=== PATIENT | male | born 1960 | race Caucasian/White ===

== ENCOUNTER 2018-01-12 08:26 | Emergency (ER) | payer BC ==
[~2018-01-12] VITALS: Ht 172.7 cm; Wt 72.6 kg
--- OUTSIDE RECORDS SUMMARY | 2018-01-12 08:28 | XMS REPORT | Clinical Summary ---
Author Author [facility] Organization [facility] Address Unknown Phone Unavailable Care Team Providers Care Senior Communications Specialist Name Role Phone Elinor Cook MD PCP Allergies No Known Allergies Current Medications Prescription Sig. Disp. Refills Start End Date Status Date 5-HYDROXYTRYPTOPHAN, Take by mouth. Active 5-HTP, ORAL ASTAXANTHIN ORAL Take by mouth. Active COLLAGEN, HYDROLYSATE, by Miscellaneous route. Active BOVINE, (COLLAGEN, HYDR, BOVINE,, BULK, MISC) DOCOSAHEXANOIC ACID-EPA Take by mouth. Active ORAL melatonin 3 mg tablet Take by mouth. Active glucosamine HCl-msm Take by mouth. Active 1,500-500 mg/30 mL liquid OMEGA 3-ZVY-BNZ-FISH OIL Take 2 g by mouth. Active ORAL THEANINE ORAL Take by mouth. Active valACYclovir (VALTREX) Take 1,000 mg by mouth. 10/05/19 Active 1000 MG tablet 16 TURMERIC (CURCUMIN MISC) Active Active Problems Problem Noted Date Knee pain 10/05/2015 Polyp of colon 12/15/2014 Diverticulosis of large intestine without perforation or abscess without bleeding Calculus of kidney 12/15/2014 Neck pain 12/15/2014 Smell disorder 12/15/2014 Encounters Date Type Specialty Care Team Description 11/20/2017 Hospital Radiology Rigoberto Heredia MD Renal calculus Encounter 11/20/2017 Transcribe Rigoberto Bobo MD Renal calculus ( Primary Orders Dx) 10/12/2017 Office Visit Internal Medicine Constance Cook MD Abnormal glucose level (Primary Dx) 05/29/2017 Hospital Radiology Rigoberto Heredia MD Hydronephrosis, Encounter unspecified hydronephrosis type 05/25/2017 Transcribe Rigoberto Bobo MD Hydronephrosis, Orders unspecified hydronephrosis type (Primary Dx) 01/30/2017 Hospital Procedural Cardiology Constance Cook MD Pain in both lower Encounter extremities; Generalized abdominal pain 01/26/2017 Office Visit Internal Medicine Constance Cook MD Pain in both lower extremities (Primary Dx) after 01/11/2017 Family History Medical History Relation Name Comments Esophageal cancer Other Kidney cancer Other Relation Name Status Comments Other Social History Tobacco Use Types Packs/Day Years Used Date Never Smoker Smokeless Tobacco: Never Used Alcohol Use Drinks/Week oz/Week Comments No Sex Assigned at Date Recorded Not on file Last Filed Vital Signs Vital Sign Reading Time Taken Blood Pressure 136/74 10/12/2017 9:57 AM WINDING INSPECTOR AND TESTER Pulse 74 10/12/2017 9:57 AM WINDING INSPECTOR AND TESTER Temperature - - Respiratory Rate - - Oxygen Saturation - - Inhaled Oxygen - - Concentration Weight 72.6 kg (160 lb) 10/12/2017 9:57 AM WINDING INSPECTOR AND TESTER Height 175.3 cm (5' 9") 10/12/2017 9:57 AM WINDING INSPECTOR AND TESTER Body Mass Index 23.63 10/12/2017 9:57 AM WINDING INSPECTOR AND TESTER Plan of Treatment Health Maintenance Due Date Last Done Comments COLON CANCER SCREENING 2008 SHINGRIX VACCINE (#1) 2008 INFLUENZA VACCINE 03/21/2018 Results * XR Kub Kidney Ureter Bladder (11/20/2017 3:37 PM) Specimen Performing Laboratory [facility] [address] [place] [address] Narrative PROCEDURE:XR KUB KIDNEY URETER BLADDER CLINICAL HISTORY:N20.0 Calculus of kidney, n20.0 COMPARISON:None. TECHNIQUE: A single view of the abdomen was performed in the AP supine projection. FINDINGS: No indirect evidence of free air is seen.. No distended loops of small or large bowel are identified. Large amount of stool is demonstrated throughout the colon. Bilateral radiopaque renal calculi are seen with the calculus in the right kidney in the upper pole and measures 3.8 mm diameter. A cluster of small calculi are seen in the lower pole with the largest of these measuring 2.4 mm. A small calculus is seen projected over the upper pole with the longest diameter measuring 5.5 mm. A few phleboliths are demonstrated in the pelvis. IMPRESSION: Abnormal study. Constipation. Bilateral renal calculi. [id number] . Procedure Note Interface, Radiology Results Incoming - 11/20/2017 3:49 PM CDT PROCEDURE: XR KUB KIDNEY URETER BLADDER CLINICAL HISTORY: N20.0 Calculus of kidney, n20.0 COMPARISON: None. TECHNIQUE: A single view of the abdomen was performed in the AP supine projection. FINDINGS: No indirect evidence of free air is seen.. No distended loops of small or large bowel are identified. Large amount of stool is demonstrated throughout the colon. Bilateral radiopaque renal calculi are seen with the calculus in the right kidney in the upper pole and measures 3.8 mm diameter. A cluster of small calculi are seen in the lower pole with the largest of these measuring 2.4 mm. A small calculus is seen projected over the upper pole with the longest diameter measuring 5.5 mm. A few phleboliths are demonstrated in the pelvis. IMPRESSION: Abnormal study. Constipation. Bilateral renal calculi. [id number] . * POC glycosylated hemoglobin (Hb A1C) (10/12/2017 10:08 AM) Component Value Ref Range POC Hemoglobin A1C 5.4 % Specimen Performing Laboratory Blood * NM Renal Scan Wflow Funct Sgl Int W/Mag 3 (05/29/2017 2:45 PM) Specimen Performing Laboratory [facility] [address] [place] [address] Narrative PROCEDURE:NM RENAL SCAN WFLOW FUNCT SGL INT W MAG 3 INDICATION:Hydronephrosis. TECHNIQUE: The patient was injected with 10 mCi of Tc-99m MAG-3, IV. Dynamic images of the abdomen were acquired for 40 minutes. At 20 minutes, a standard dose of IV lasix was administered. FINDINGS:Perfusion to both kidneys is normal.Cortical transit time through both kidneys is less than 5 minutes.Urine flows freely from the left kidney into the bladder.There is mild stasis in the right renal pelvis at 20 minutes, with complete washout after Lasix.The half-time of emptying of the right kidney is 12 minutes. Normal washout is less than 10 minutes. High grade obstruction is suggested if greater than 20 minutes. Between 10 and 20 minutes is indeterminate. Split function:Left kidney 53%, right kidney 47%. IMPRESSION: 1.No evidence for high-grade obstruction of either kidney.The left kidney drains normally before Lasix.Mild stasis in the right kidney clears completely after Lasix. [facility]-[id number] Procedure Note Interface, Radiology Results Incoming - 05/29/2017 4:52 PM CDT PROCEDURE: NM RENAL SCAN WFLOW FUNCT SGL INT W MAG 3 INDICATION: Hydronephrosis. TECHNIQUE: The patient was injected with 10 mCi of Tc-99m MAG-3, IV. Dynamic images of the abdomen were acquired for 40 minutes. At 20 minutes, a standard dose of IV lasix was administered. FINDINGS: Perfusion to both kidneys is normal. Cortical transit time through both kidneys is less than 5 minutes. Urine flows freely from the left kidney into the bladder. There is mild stasis in the right renal pelvis at 20 minutes , with complete washout after Lasix. The half-time of emptying of the right kidney is 12 minutes. Normal washout is less than 10 minutes. High grade obstruction is suggested if greater than 20 minutes. Between 10 and 20 minutes is indeterminate. Split function: Left kidney 53%, right kidney 47%. IMPRESSION: 1. No evidence for high-grade obstruction of either kidney. The left kidney drains normally before Lasix. Mild stasis in the right kidney clears completely after Lasix. [facility]-[id number] * PV duplex venous lower extremity bilat (01/30/2017 9:50 AM) Specimen Performing Laboratory [facility] [address] [place] [address] Narrative Vascular Ultrasound Laboratory Lower Extremity Venous Report [address] [place] [address].Name:Abhilash ARMENTA.ID:[id number] .Date: 01/30/2017 Refer.MD:CONSTANCE COOK MD Exam Time: 9:02:00 AMStudy Type:LE Venous Height:69inWeight:164lb BSA: 1.9 n0MTYZpl:1960,56Y Sex: MALESonogrphr: Aline Pettit RVT Pat. Stat.:OutpatientRoom:OPC 16 TapeVol: SD, CPT - 4: 48104 Echo Event ID:[id number] Order ID:[id number] Reason for Study:Bilateral calf pain x 4 months often on, more towards the end of the day as per the patient. Race:C SUMMARY: DUPLEX SCAN OBSERVATIONS Deep VeinsSuperficial Veins RightLeft RightLeft GSV (prox) NormalNormal CFV Normal Normal (above knee) Femoral Normal Normal GSV (dist) Normal Normal Profunda Normal Normal (below knee) Popliteal Normal Normal PT (prox) Normal NormalSSV Not Visualized Not Visualized PT (dist) Normal Normal Peroneal Normal Normal RIGHT:There is normal compressibility with no evidence of echogenic material noted within the lumen of the visualized veins. Colorflow and Doppler signals are normal. LEFT: There is normal compressibility with no evidence of echogenic material noted within the lumen of the visualized veins. Colorflow and Doppler signals are normal. PRELIMINARY FINDINGS 1. Normal venous duplex exam, bilaterally. PHYSICIAN INTERPRETATION 1.Venous examination of the both lower extremities demonstrates no evidence of venous thrombosis. Signed 01/30/2017 04:46 PM Alexandr Elmore MD Procedure Note Interface, Radiology Results In - 01/30/2017 4:47 PM CDT Vascular Ultrasound Laboratory Lower Extremity Venous Report [address] [place] [address] Pat.Name: MIKE ARMENTA Pat.ID: [id number] .Date: 01/30/2017 Refer.MD: CONSTANCE COOK MD Exam Time: 9:02:00 AM Study Type:LE Venous Height: 69in Weight: 164lb BSA: 1.9 m2 Age: 1 1960,56Y Sex: MALE Sonogrphr: Aline Pettit RVT Pat. Stat.:Outpatient Room: [facility] 16 Tape Vol: SD, CPT - 4: 42322 Echo Event ID:[id number] Order ID: [id number] Reason for Study:Bilateral calf pain x 4 months often on, more towards the end of the day as per the patient. Race: C SUMMARY: DUPLEX SCAN OBSERVATIONS Deep Veins Superficial Veins Right Left Right Left GSV (prox) Normal Normal CFV Normal Normal (above knee) Femoral Normal Normal GSV (dist) Normal Normal Profunda Normal Normal (below knee) Popliteal Normal Normal PT (prox) Normal Normal SSV Not Visualized Not Visualized PT (dist) Normal Normal Peroneal Normal Normal RIGHT: There is normal compressibility with no evidence of echogenic material noted within the lumen of the visualized veins. Colorflow and Doppler signals are normal. LEFT: There is normal compressibility with no evidence of echogenic material noted within the lumen of the visualized veins. Colorflow and Doppler signals are normal. PRELIMINARY FINDINGS 1. Normal venous duplex exam, bilaterally. PHYSICIAN INTERPRETATION 1. Venous examination of the both lower extremities demonstrates no evidence of venous thrombosis. Signed 01/30/2017 04:46 PM Alexandr Elmore MD after 01/11/2017 Insurance Payer Benefit Subscriber ID Type Phone Address Plan / Group BCBS BCBS xxxxxxxxxxxx PPO CHOICE PPO/[employer] PPO Home: MIKE ARMENTA Personal/F Self 1960 Work: [address] [place] [address] Home:
[2018-01-12] MEDS ORDERED: ASPIRIN 81 MG CHEW TAB PO ONE (08:45)
[2018-01-12 08:57] LABS: BASOPHILS % 0.5 % (0.0-1.0); EOSINOPHILS # (AUTO) 0.2 (0.0-0.4); EOSINOPHILS % 2.6 % (0.0-6.0); HEMATOCRIT 47.3 % (38.2-49.6); HEMOGLOBIN 16.1 g/dL (14.0-18.0); LYMPHOCYTES # (AUTO) 2.4 (1.0-3.2); LYMPHOCYTES % 39.3 % (18.0-39.1); MEAN CORPUSCULAR HEMOGLOBIN 29.9 pg (28-32); MEAN CORPUSCULAR VOLUME 87.9 fL (81-99); MONOCYTES # (AUTO) 0.5 (0.2-0.8); MONOCYTES % 7.9 % (4.4-11.3); NEUTROPHILS # (AUTO) 3.1 (2.1-6.9); NEUTROPHILS % 49.5 % (38.7-80.0); PLATELET COUNT 177 x10e3/uL (140-360); RED BLOOD COUNT 5.38 x10e6/uL (4.3-5.7); RED CELL DISTRIBUTION WIDTH 12.9 % (11.7-14.4)
[2018-01-12 09:00] LABS: BILIRUBIN,URINE NEGATIVE (NEGATIVE); CLARITY,URINE CLEAR (CLEAR); COLOR,URINE YELLOW (YELLOW); KETONES,URINE NEGATIVE (NEGATIVE); LEUKOCYTE ESTERASE ,URINE NEGATIVE (NEGATIVE); NITRITE,URINE NEGATIVE (NEGATIVE); PROTEIN,URINE DIPSTICK NEGATIVE (NEGATIVE); URINE UROBILINOGEN 0.2 mg/dL (0.2 - 1)
[2018-01-12 09:10] LABS: BACTERIA,URINE FEW /HPF; EPITHELIAL CELLS,URINE RARE /LPF; WBC,URINE (MAN) 0-5 /HPF (0-5)
--- NOTE | 2018-01-12 09:13 | Diagnostic Imaging Report ---
PROCEDURE:CHEST 2 VIEWS TECHNIQUE:PA and lateral chest INDICATION:Chest pain; abdominal pain COMPARISON:None. FINDINGS: The lungs are clear and symmetrically inflated. No pleural effusions. Normal heart size and mediastinal contour, and pulmonary vasculature. Normal skeleton. CONCLUSION: Normal study. Dictated by: Kevon Presley M.D. on 01/12/2018 at 9:16 Electronically approved by: Kevon Presley M.D. on 01/12/2018 at 9:16
[2018-01-12 09:16] LABS: ALANINE AMINOTRANSFERASE 40 IU/L (0-55); ALBUMIN 4.3 g/dL (3.5-5.0); ALBUMIN/GLOBULIN RATIO 1.5 (0.8-2.0); ALKALINE PHOSPHATASE 35 IU/L (40-150); ANION GAP 12.4 mmol/L (8-16); BLOOD UREA NITROGEN 16 mg/dL (7-26); BUN/CREATININE RATIO 19 (6-25); CALCIUM 9.7 mg/dL (8.4-10.2); CARBON DIOXIDE 27 mmol/L (22-29); CHLORIDE 102 mmol/L (98-107); CREATINE KINASE 97 IU/L (30-200); CREATININE, SERUM 0.85 mg/dL (0.72-1.25); EST GLOMERULAR FILTRATION RATE > 60 ML/MIN (60-); GLUCOSE 98 mg/dL (74-118); POTASSIUM 3.4 mmol/L (3.5-5.1); SODIUM 138 mmol/L (136-145)
--- OUTSIDE RECORDS SUMMARY | 2018-01-12 09:48 | XMS REPORT | Clinical Summary ---
Author Author [facility] Organization [facility] Address Unknown Phone Unavailable Care Team Providers Care Administrative Assistant Receptionist Name Role Phone Elinor Cook MD PCP [...] mouth. Active 1,500-500 mg/30 mL liquid OMEGA 4-QFY-CIO-FISH OIL Take 2 g by mouth. Active [...] Taken Blood Pressure 136/74 10/12/2017 9:57 AM RED CROSS EXECUTIVE DIRECTOR Pulse 74 10/12/2017 9:57 AM RED CROSS EXECUTIVE DIRECTOR Temperature - - Respiratory Rate - - Oxygen Saturation - - Inhaled Oxygen - - Concentration Weight 72.6 kg (160 lb) 10/12/2017 9:57 AM RED CROSS EXECUTIVE DIRECTOR Height 175.3 cm (5' 9") 10/12/2017 9:57 AM RED CROSS EXECUTIVE DIRECTOR Body Mass Index 23.63 10/12/2017 9:57 AM RED CROSS EXECUTIVE DIRECTOR Plan of Treatment Health Maintenance Due Date Last Done Comments COLON CANCER SCREENING 2008 SHINGRIX VACCINE (#1) 2008 INFLUENZA VACCINE 03/21/2018 Results * XR Kub Kidney Ureter Bladder (11/20/2017 3:37 PM) Specimen Performing Laboratory [facility] [address] [place] [address] Narrative PROCEDURE:XR KUB KIDNEY URETER BLADDER CLINICAL [...] IMPRESSION: Abnormal study. Constipation. Bilateral renal calculi. [facility] [place] [id number] . Procedure Note Interface, Radiology Results Incoming [...] IMPRESSION: Abnormal study. Constipation. Bilateral renal calculi. [facility] [id number] . * POC glycosylated hemoglobin (Hb A1C) (10/12/2017 10:08 AM) Component Value Ref Range POC Hemoglobin A1C 5.4 % Specimen Performing Laboratory Blood * NM Renal Scan Wflow Funct Sgl Int W/Mag 3 (05/29/2017 2:45 PM) Specimen Performing Laboratory [facility] [address] [place] [address] Narrative PROCEDURE:NM RENAL SCAN WFLOW FUNCT SGL [...] the right kidney clears completely after Lasix. [facility]-[id number] Procedure Note Interface, Radiology Results Incoming - [...] the right kidney clears completely after Lasix. [facility]-[id number] * PV duplex venous lower extremity bilat (01/30/2017 9:50 AM) Specimen Performing Laboratory [facility] [address] [place] [address] Narrative Vascular Ultrasound Laboratory Lower Extremity Venous Report [address] [place] [address].Name:Abhilash ARMENTA.ID:[id number] .Date: 01/30/2017 Refer.MD:CONSTANCE COKO MD Exam Time: 9:02:00 AMStudy Type:LE Venous Height:69inWeight:164lb BSA: 1.9 m2DHEFng:1960,56Y Sex: MALESonogrphr: Aline Pettit RVT Pat. Stat.:OutpatientRoom:OPC 16 TapeVol: SD, CPT - 4: 91896 Echo Event ID:[id number] Order ID:[id number] Reason for Study:Bilateral calf pain x 4 [...] Ultrasound Laboratory Lower Extremity Venous Report [address] [place] [address] Pat.Name: MIKE ARMENTA Pat.ID: [id number] .Date: 01/30/2017 Refer.MD: CONSTANCE COOK MD Exam Time: 9:02:00 AM Study Type:LE Venous Height: 69in Weight: 164lb BSA: 1.9 m2 Age: 1 1960,56Y Sex: MALE Sonogrphr: Aline Pettit RVT Pat. Stat.:Outpatient Room: [facility] 16 Tape Vol: SD, CPT - 4: 20109 Echo Event ID:[id number] Order ID: [id number] Reason for Study:Bilateral calf pain x 4 [...] Personal/F Self 1960 Work: [address] [place] [address] Home:
--- OUTSIDE RECORDS SUMMARY | 2018-01-12 09:48 | XMS REPORT | Clinical Summary ---
Author Author [facility] Address Unknown Phone Unavailable Care Team Providers Care Extractor Operator Solvent Process Name Role Phone PCP Unavailable Allergies No Known Allergies Current Medications Prescription Sig. Disp. Refills Start End Date Status Date ACETYLCYSTEINE (NAC ORAL) Take by mouth. Active COLLAGEN MISC by Miscellaneous route. Active METHYLSULFONYLMETHANE Take by mouth. Active (MSM ORAL) TURMERIC (CURCUMIN MISC) by Miscellaneous route. Active ASTAXANTHIN ORAL Take by mouth. Active omega-3 fatty acids-fish Take 2 g by mouth 2 (two) Active oil 340-1,000 mg Cap per times daily. capsule docosahexanoic acid-epa Take by mouth. Active Cap melatonin 3 mg Tab Take by mouth. Active 5-HYDROXYTRYPTOPHAN, Take by mouth. Active 5-HTP, (5-HTP ORAL) THEANINE ORAL Take by mouth. Active tamsulosin (FLOMAX) 0.4 Take 1 capsule (0.4 mg 30 capsule 0 03/04/20 Active mg Cp24 24 hr capsule total) by mouth daily. 16 Active Problems Not on file Social History Tobacco Use Types Packs/Day Years Used Date Never Smoker Alcohol Use Drinks/Week oz/Week Comments Yes occassionally Sex Assigned at Date Recorded Not on file Last Filed Vital Signs Not on file Plan of Treatment Not on file Implants Implanted Type Area Multimedia Programmer Device Expiration Model / Identifier Date Serial / Lot Stent Uret Cntour Inj [id number] Stents-Per Right: [employer] 06/14/2017 [id number] / [id number] - [id number] ipheral Ureter SCI:UROLOGY/AUTOMOTIVE PARTS COORDINATOR / Implanted: Qty: 1 on 03/04/2016 by [employer]OLOG[employer] [id number] Markel Lui MD Set Stent Injection 6x24cm Stents-Per Right: [employer] 11/18/2017 [id number] - [id number] ipheral Ureter SCI:ONCOLOGY 0 / Implanted: Qty: 1 on 03/11/2016 by / Markel Lui MD [id number] Results Not on fileafter 01/11/2017
--- OUTSIDE RECORDS SUMMARY | 2018-01-12 09:48 | XMS REPORT ---
Author [facility] Address Unknown Phone Unavailable Care Team Providers Care Qa Auditor Name Role Phone PRECIOUS FIELD Unavailable Unavailable Problems This patient has no known problems. Allergies, Adverse Reactions, Alerts This patient has no known allergies or adverse reactions. Medications This patient has no known medications. Results Test Description Test Time Test Comments Text Results Atomic Results Result Comments CHEST 2 VIEWS [place] [address] Patient Name: MIKE ARMENTA MR #: [id number] : 1960 Age/Sex: 57/M Req # : [id number] Adm Physician: Ordered by: PAULA HITCHCOCK Report #: [id number] Location: ER Room/Bed: Procedure: [id number] 0019 DX/CHEST 2 VIEWS Exam Date: Exam Time: REPORT STATUS: Signed PROCEDURE: CHEST 2 VIEWS TECHNIQUE: PA and lateral chest INDICATION: Chest pain; abdominal pain COMPARISON: None. FINDINGS: The lungs are clear and symmetrically inflated. No pleural effusions. Normal heart size and mediastinal contour, and pulmonary vasculature. Normal skeleton. CONCLUSION: Normal study. Dictated by: Lito Presley M.D. on 01/12/2018 at 9:16 Electronically approved by: Lito Presley M.D. on 01/12/2018 at 9:16 Dictated By: LITO PRESLEY MD 5 Transcribed By: TERRY on 01/12/18915 COPY TO: PAULA HITCHCOCK
--- NOTE | 2018-01-12 10:41 | Diagnostic Imaging Report ---
CT scan abdomen and pelvis. January 12, 2018 Clinical history: Rule out kidney stone. Abdominal pain. Technique: Renal Stone CT abdomen and pelvis. No intravenous contrast was administered. No enteric contrast was administered. Coronal, sagittal and axial images generated from source data. Dose: 305.94 mGy-cm Comparison: None Findings: Clear lung bases. No pleural effusions. Normal heart size. Liver: Normal Gallbladder: Normal Pancreas: Normal Spleen: Normal Adrenal glands: Normal Urinary bladder: Normal Prostate and seminal vesicles: Normal Kidneys: Right: 7 x 4 mm and 2 mm superior pole stones. Normal ureter. Incidental extrarenal pelvis. Left: 5 x 3 mm, 3 mm, and 2 mm inferior pole stones. Normal ureter. Bowel: Normal caliber. Normal appendix. Mild sigmoid diverticulosis. Peritoneum: Normal Vasculature: Normal caliber. Trace internal iliac atherosclerosis. Lymph nodes: Normal Skeleton: Intact. Multilevel degenerative disc disease predominantly at L2-L3, L3-L4 and L5-S1. Facet arthropathy at L4-L5 and L5-S1 with L5 pars defects bilaterally. No listhesis. Soft tissues: Normal Impression: Bilateral nonobstructive nephrolithiasis. No ureteral stones. This report was generated with voice-recognition technology. Errors in test administrator can occur. Please interpret accordingly and contact a radiologist if there are any questions regarding the report. Signed by: Dr. Kevon Presley M.D. on 01/12/2018 10:37 AM
[2018-01-12 11:30] VITALS: BP 117/77
== END 2018-01-12 11:25 | disposition home or self-care (01) ==
LOC: ER 09:45
DX: R07.89 Other chest pain (principal); R10.30 Lower abdominal pain, unspecified; R03.0 Elevated blood-pressure reading, without diagnosis of hypertension
CPT/HCPCS: 36415; 71046; 74176; 80053; 81001; 82550; 82553; 83880; 84484; 85025; 93005; 99284